=== PATIENT | female | born 1980 | race Caucasian/White ===

== ENCOUNTER → 2024-06-10 07:47 | Outpatient (REF) | payer OTHER, SELFPAY ==
--- NOTE | 2024-06-10 09:03 | OID.BR.INTR ---
[facility] Breast Navigator - Initial
- -
Date of Contact: 06/10/24
Met with patient. Patient given written information on navigator services available at [facility]. Will follow up as needed per protocol.
== END ==
LOC: WDC 07:47
PROVIDERS: ATTENDING PHYSICIAN Obstetrics & Gynecology
DX: R92.1 Mammographic calcification found on diagnostic imaging of breast (principal)
CPT/HCPCS: 88305; 19081; 76098; A4648

== ENCOUNTER → 2024-06-17 06:48 | Outpatient (REF) | payer OTHER, SELFPAY | LOC: WDC 06:48 | PROVIDERS: ATTENDING PHYSICIAN Obstetrics & Gynecology | DX: R92.1 Mammographic calcification found on diagnostic imaging of breast (principal); C50.919 Malignant neoplasm of unspecified site of unspecified female breast | CPT/HCPCS: 88305; 19081; 19285; 76098; 77065; A4648 ==

== ENCOUNTER → 2024-06-29 12:46 | Outpatient (REF) | payer OTHER, SELFPAY | LOC: WDC 12:46 | PROVIDERS: ATTENDING PHYSICIAN Surgery | DX: R92.2 Inconclusive mammogram (principal); D05.90 Unspecified type of carcinoma in situ of unspecified breast | CPT/HCPCS: 76641 ==

== ENCOUNTER → 2024-08-01 07:53 | Outpatient (REF) | payer OTHER, SELFPAY | LOC: WDC 07:53 | PROVIDERS: ATTENDING PHYSICIAN Surgery | DX: N60.91 Unspecified benign mammary dysplasia of right breast (principal) | CPT/HCPCS: 19281; A4648 ==

== ENCOUNTER → 2024-08-02 07:34 | Outpatient (REF) | payer OTHER, SELFPAY | LOC: WDC 07:34 | PROVIDERS: ATTENDING PHYSICIAN Surgery | DX: N60.91 Unspecified benign mammary dysplasia of right breast (principal) | CPT/HCPCS: 88305; 88307; 76098 ==

== ENCOUNTER → 2024-08-30 11:45 | Outpatient (REF) | payer OTHER, SELFPAY | LOC: CLAB 11:45 | PROVIDERS: ATTENDING PHYSICIAN Surgery | DX: D05.92 Unspecified type of carcinoma in situ of left breast (principal) | CPT/HCPCS: 88307 ==

== ENCOUNTER 2024-09-04 08:43 | Emergency (ER) | payer OTHER, SELFPAY ==
[2024-09-04 08:53] VITALS: BP 136/79
--- NOTE | 2024-09-04 09:08 | ED.GENMED ---
History of Present Illness
<Tito Virgen PA-C - Last Filed: 09/04/24 10:51>
General
Chief Complaint: Post Operative Problem(s)
Time Seen by Provider: 09/04/24 09:09
History of Present Illness
History of Present Illness:
44-year-old female presents to the emergency department for evaluation of intermittent bleeding from the left breast, she is 5 days status post lumpectomy performed by Dr. Jefferson at this hospital. She reports increasing pain over the past 48 hours
as well. Reports a history of a prior lumpectomy that was not nearly as painful. No fevers or chills.
Review of Systems
<Tito Virgen PA-C - Last Filed: 09/04/24 10:51>
Review of Systems
Allergies reviewed?: Yes
All Other Systems: ROS reviewed and negative except as documented in HPI and ROS
Phy Exam
<Tito Virgen PA-C - Last Filed: 09/04/24 10:51>
Physical Exam
Physical Exam:
GEN: Well appearing, NAD, WDWN
HEENT: Oral mucosa moist, no scleral icterus
Cardiac: Regular rate
Breast: Moderate erythema extending from the lateral areolar tissue, there is slight wound dehiscence to the superior aspect of the incision with intermittent milky/bloody discharge, marked tenderness to palpation, no crepitus
Lung: No respiratory distress, no tachypnea
MSK: No gross deformity or injuries
Skin: Good color, no pallor or jaundice, no rashes
Neuro: AO x3, moves all extremities freely
Psych: Calm, cooperative
Course
<Tito Virgen PA-C - Last Filed: 09/04/24 10:51>
Orders/Labs/Results
Orders:
Orders
09/04/24 09:28
CeFAZolin 2 GRAM [Ancef] 2 grams in 10 ml IV NOW
09/04/24 09:54
Complete Blood Count/With Diff Urgent
Comprehensive Metabolic Panel Urgent
09/04/24 10:23
HYDROmorphone [Dilaudid] 0.25 mg IV PACU-Q5MPRN PRN
HYDROmorphone [Dilaudid] 0.5 mg IV PACU-Q5MPRN PRN
Meperidine [Demerol] 12.5 mg IV PACU-Q5MPRN PRN
Ondansetron Injectable [Zofran] 4 mg IV PACU-ONCEPRN PRN
Prochlorperazine [Compazine] 5 mg IV PACU-ONCEPRN PRN
Notify MD As Directed
Notify physician if: for SDS patients with known or suspected sleep obstructive sleep apnea, monitor in the
PACU.
Notify MD for any apneic/desaturation episodes
O2 Therapy [RESP] Urgent
Titrate/Wean O2 to maintain O2 sat greater than (%): 92
Special Instructions: -Provide supplemental oxygen to achieve O2 sat of 92% or greater.
-After 15 min, may wean O2 and discontinue if patient is able to maintain O2 sat of 92%
or greater during recovery period.
If patient is a discharge home, without oxygen therapy, notify anestheiologist if
unable to maintain O2 SAT of 92% or greater on room air for MD clearance.
Abnormal Lab Results
09/04/24
09:54
MCH 32.1 H pg
(27.0-31.0)
RDW 11.4 L %
(11.5-14.5)
Absolute Neuts (auto) 7.4 H 10^3/uL
(1.4-6.5)
Neutrophils % 79.3 H %
(42.2-75.2)
Lymphocytes % 15.0 L %
(20.5-51.1)
Glucose 103 H mg/dl
(70-99)
ALT 36 H U/L
(0-35)
09/04/24 09:54
09/04/24 09:54
Vital Signs
Initial and Last Documented VS:
Initial Vital Signs
Temp Pulse Resp BP Pulse Ox
98.2 F 104 20 136/79 100
09/04/24 08:53 09/04/24 08:53 09/04/24 08:53 09/04/24 08:53 09/04/24 08:53
Last Documented Vital Signs
Temp Pulse Resp BP Pulse Ox
98.2 F 82 16 117/68 98
09/04/24 08:53 09/04/24 10:30 09/04/24 10:30 09/04/24 10:00 09/04/24 10:30
<Keri Peña, - Last Filed: >
Orders/Labs/Results
Orders:
Orders
09/04/24 09:28
CeFAZolin 2 GRAM [Ancef] 2 grams in 10 ml IV NOW
09/04/24 09:54
Complete Blood Count/With Diff Urgent
Comprehensive Metabolic Panel Urgent
09/04/24 10:23
HYDROmorphone [Dilaudid] 0.25 mg IV PACU-Q5MPRN PRN
HYDROmorphone [Dilaudid] 0.5 mg IV PACU-Q5MPRN PRN
Meperidine [Demerol] 12.5 mg IV PACU-Q5MPRN PRN
Ondansetron Injectable [Zofran] 4 mg IV PACU-ONCEPRN PRN
Prochlorperazine [Compazine] 5 mg IV PACU-ONCEPRN PRN
Notify MD As Directed
Notify physician if: for SDS patients with known or suspected sleep obstructive sleep apnea, monitor in the
PACU.
Notify MD for any apneic/desaturation episodes
O2 Therapy [RESP] Urgent
Titrate/Wean O2 to maintain O2 sat greater than (%): 92
Special Instructions: -Provide supplemental oxygen to achieve O2 sat of 92% or greater.
-After 15 min, may wean O2 and discontinue if patient is able to maintain O2 sat of 92%
or greater during recovery period.
If patient is a discharge home, without oxygen therapy, notify anestheiologist if
unable to maintain O2 SAT of 92% or greater on room air for MD clearance.
Abnormal Lab Results
09/04/24
09:54
MCH 32.1 H pg
(27.0-31.0)
RDW 11.4 L %
(11.5-14.5)
Absolute Neuts (auto) 7.4 H 10^3/uL
(1.4-6.5)
Neutrophils % 79.3 H %
(42.2-75.2)
Lymphocytes % 15.0 L %
(20.5-51.1)
Glucose 103 H mg/dl
(70-99)
ALT 36 H U/L
(0-35)
09/04/24 09:54
09/04/24 09:54
Vital Signs
Initial and Last Documented VS:
Initial Vital Signs
Temp Pulse Resp BP Pulse Ox
98.2 F 104 20 136/79 100
09/04/24 08:53 09/04/24 08:53 09/04/24 08:53 09/04/24 08:53 09/04/24 08:53
Last Documented Vital Signs
Temp Pulse Resp BP Pulse Ox
98.2 F 82 16 117/68 98
09/04/24 08:53 09/04/24 10:30 09/04/24 10:30 09/04/24 10:00 09/04/24 10:30
<Tito Virgen PA-C - Last Filed: 09/04/24 10:51>
MDM/Problems Addressed
MDM/Problems Addressed:
Patient was seen at the bedside by her breast surgeon Dr. Jefferson, at this time no indication for operative drainage. Patient was started on Augmentin, this prescription was sent in by the breast surgeon and will follow-up in the office tomorrow
<Tito Virgen PA-C - Last Filed: 09/04/24 10:51>
*Critical Care Note
Total Time (30-74mins, 75-104mins- exclusive of procedures): Not Applicable
ED Attending Note
<Keri Peña DO - Last Filed: >
-
Portions of this chart may have been created with voice recognition software.� Occasional wrong word or��sound alike� substitutions may have occurred due to the inherent limitations of voice recognition software.
Discharge Plan
Departure
Patient Disposition: Home (Routine Discharge)
Date of Disposition: 09/04/24
Time of Disposition: 10:30
Patient with high blood pressure during this ER visit?: No
Discharge Problem:
Post-operative infection
Prescriptions:
New
amoxicillin-pot clavulanate 875-125 mg tablet
1 tab PO BID Qty: 14 0RF
Referrals:
Nessa Fulton CRNP [Family Provider] -
Activity Restrictions/Additional Instructions:
Take antibiotic (Augmentin) as prescribed by Dr Jefferson
Change the gauze as needed when the dressing is saturated
Wash the area around the wound with soap and water
See Dr Jefferson in the office tomorrow
Interventions
Interventions:
*Risk Screen - Suicide Last Done: 09/04/24 08:46
*General Assessment Last Done: 09/04/24 08:46
*Neglect/Abuse Screening Last Done: 09/04/24 08:46
ED- Fall Risk Assessment Last Done: 09/04/24 09:59
*ED COVID-19 Vaccine History Last Done: 09/04/24 09:59
*Nursing Disposition Last Done: 09/04/24 10:47
ED-Skin Assessment Last Done: 09/04/24 09:59
Discharge Date and Time
Discharge Date/Time: 09/04/24 10:47
Print Language: ANGUILLAN
[2024-09-04] MEDS: ANCEF 10 IV (09:54)
[2024-09-04 09:59] VITALS: BMI 17.7
[2024-09-04 10:00] VITALS: BP 117/68
[2024-09-04 10:11] LABS: % Basophils 0.5 % (0-2); % Eosinophils 0.5 % (0-6); % Immature Granulocytes 0.2 % (0-0.5); % Monocytes 4.5 % (1.7-9.3); % Neutrophils 79.3 % (42.2-75.2); Absolute Basophils 0.1 10^3/uL (0-0.2); Absolute Eosinophils 0.1 10^3/uL (0-0.7); Absolute Lymphocytes 1.4 10^3/uL (1.2-3.4); Absolute Monocytes 0.4 10^3/uL (0.1-0.6); Absolute Neutrophils 7.4 10^3/uL (1.4-6.5); Hemoglobin 13.9 g/dL (12.0-16.0); Mean Corp Hgb Conc. 36.6 g/dL (33.0-37.0); Mean Corpuscular Hgb 32.1 pg (27.0-31.0); Mean Corpuscular Volume 87.8 fL (81.0-99.0); Mean Platelet Volume 10.2 fL (7.4-10.4); Nucleated Red Blood Cells % 0 %; Platelet Count 243 10^3/uL (130-400); Red Blood Cell Count 4.33 10^6/uL (4.20-5.40); Red Cell Dist. Width 11.4 % (11.5-14.5); White Blood Cell Count 9.4 10^3/uL (4.8-10.8)
[2024-09-04 10:18] LABS: ALT (SGPT) 36 U/L (0-35); AST (SGOT) 31 U/L (14-36); Albumin 4.6 g/dl (3.5-5.0); Alkaline Phosphatase 63 U/L (38-126); Blood Urea Nitrogen 12 mg/dl (7-17); Calcium 9.3 mg/dl (8.4-10.2); Carbon Dioxide 26 mmol/L (22-30); Chloride 103 mmol/L (98-107); Estimated Creatinine Clearance 84 ml/min; Glucose 103 mg/dl (70-99); Sodium 141 mmol/L (135-145); Total Bilirubin 0.9 mg/dl (0.2-1.3); Total Protein 7.6 g/dl (6.3-8.2); eGFR > 60.00
--- NOTE | 2024-09-04 10:47 | EDRN ---
Surgeon at the pts bedside speaking with the pt
== END 2024-09-04 10:47 | disposition home or self-care (01) ==
LOC: EMR 08:43
PROVIDERS: Physician Assistant; EMERGENCY PHYSICIAN Student in an Organized Health Care Education/Training Program; FAMILY PHYSICIAN Nurse Practitioner Family
DX: T81.40XA Infection following a procedure, unspecified, initial encounter (principal); L76.22 Postprocedural hemorrhage of skin and subcutaneous tissue following other procedure; Y83.9 Surgical procedure, unspecified as the cause of abnormal reaction of the patient, or of later complication, without mention of misadventure at the time of the procedure; X58.XXXA Exposure to other specified factors, initial encounter
CPT/HCPCS: 99284; 96374; 80053; 85025

== ENCOUNTER → 2025-05-29 07:35 | Outpatient (REF) | payer OTHER, SELFPAY | LOC: HWWDC 07:35 | PROVIDERS: ATTENDING PHYSICIAN Family Medicine Geriatric Medicine; FAMILY PHYSICIAN Nurse Practitioner Family | DX: Z12.31 Encounter for screening mammogram for malignant neoplasm of breast (principal); Z85.3 Personal history of malignant neoplasm of breast | CPT/HCPCS: 77063; 77067 ==